=== PATIENT | male | born 1990 | race Two or more races ===

== ENCOUNTER 2024-08-24 20:03 | Emergency (ER) | payer BC ==
[~2024-08-24] VITALS: Ht 180.3 cm; Wt 99.8 kg
[2024-08-26 23:53] LABS: HCV QNT BY NAAT (IU/ML) Not Detected; HCV QNT BY NAAT (LOG IU/ML) Not Detected; HCV QNT BY NAAT INTERP Not Detected (Not Detected)
[2024-08-27 08:19] LABS: HIV 1,2 COMBO ANTIGEN/ANTIBODY Negative (Negative)
[2024-08-27 14:26] LABS: HEPATITIS B SURFACE ANTIBODY <3.10 IU/L
== END 2024-08-24 22:30 | disposition home or self-care (01) ==
LOC: ER 20:03
PROVIDERS: Student in an Organized Health Care Education/Training Program
DX: Z77.21 Contact with and (suspected) exposure to potentially hazardous body fluids (principal); Z53.21 Procedure and treatment not carried out due to patient leaving prior to being seen by health care provider
CPT/HCPCS: 36415; 84460; 87389; 87522